=== PATIENT | female | born 1975 | race Caucasian/White ===

== ENCOUNTER 2016-10-29 12:58 | Outpatient (CLI) | payer OTHER ==
[~2016-10-29 12:58] MED LIST: ACETAMINOPHEN500 MG PO; ACYCLOVIR400 MG PO; ALPRAZOLAM1 MG PO; IBUPROFEN200 M1 PO; MORPHINE SULFAT15 M2 PO; NEURONTIN300 MG PO; OMEPRAZOLE20 M1 PO; OXYCODONE HCL5 MG PO; PERCOCET1 TA1 PO; PREDNISONE10 MG PO; PRENATAL1 TAB PO; PROAIR HFA IN; REGLAN10 MG PO; TIZANIDINE HCL4 MG PO; WOMENS DAILY FORMULA PO
--- NOTE | 2016-10-29 14:29 | DIAGNOSTIC IMAGING REPORT ---
PROCEDURE: MR LUMBAR SPINE W/O CONTRAST INDICATION: Lumbar pain TECHNIQUE: Noncontrast T1, T2, and STIR sagittal images. T1 and T2 axial images. COMPARISON: Lumbar spine MRI 12/26/2014 FINDINGS: Normal alignment without fracture. Schmorl's nodes from L1 to L5. Mild L3-4, severe L4-5 and moderate L5-S1 disc space narrowing with mild to moderate spur formation. Fatty endplate degenerative changes at L4-5. Normal conus. L1-2: Normal L2-3: Normal L3-4: Mild disc space narrowing and desiccation. Small disc protrusion but no spinal or foraminal stenosis. L4-5: Severe disc space narrowing with a mild broad-based disc protrusion/spur complex and mild facet arthropathy. There is resulting mild bilateral foraminal stenosis. There is no spinal stenosis. L5-S1: Moderate narrowing of the disc with desiccation. Moderate broad-based disc protrusion/spur complex and mild facet arthropathy resulting in moderate narrowing of the lateral recesses bilaterally and moderate left foraminal stenosis. No spinal stenosis. IMPRESSION: 1. Moderate degenerative changes of the lumbar spine multilevel disc protrusion and spur formation 2. Mild bilateral L4-5 foraminal stenosis 3. Moderate narrowing of the L5-S1 lateral recesses bilaterally and moderate left foraminal stenosis
== END 2016-10-29 23:00 ==
LOC: MRI SRH 12:58
DX: M51.36 Other intervertebral disc degeneration, lumbar region (principal); M51.26 Other intervertebral disc displacement, lumbar region; M48.06 Spinal stenosis, lumbar region; M48.07 Spinal stenosis, lumbosacral region

== ENCOUNTER 2016-12-26 12:21 | Outpatient (CLI) | payer OTHER ==
--- NOTE | 2016-12-26 14:22 | DIAGNOSTIC IMAGING REPORT ---
PROCEDURE: MR LUMBAR SPINE W/O CONTRAST INDICATION: BILATERAL SCIATICA TECHNIQUE: Noncontrast T1, T2, and STIR sagittal images. T1 and T2 axial images. COMPARISON: Lumbar spine MRI 10/29/2016 and 12/26/2014 FINDINGS: Normal alignment without fracture. Schmorl's nodes from L1 to L5. Mild L3-4, severe L4-5 and moderate L5-S1 disc space narrowing with mild to moderate spur formation. Fatty endplate degenerative changes at L4-5. Normal conus. L1-2: Normal L2-3: Normal L3-4: Mild disc space narrowing and desiccation. Small disc protrusion but no spinal or foraminal stenosis. L4-5: Severe disc space narrowing with a mild broad-based disc protrusion/spur complex and mild facet arthropathy. There is resulting mild bilateral foraminal stenosis. There is no spinal stenosis. L5-S1: Moderate narrowing of the disc with desiccation. Moderate broad-based disc protrusion and mild facet arthropathy resulting in moderate narrowing of the lateral recesses bilaterally and moderate left foraminal stenosis. No spinal stenosis. IMPRESSION: 1. Moderate degenerative changes of the lumbar spine multilevel disc protrusion and spur formation 2. No change from the MRIs dated the 10/29/2016 and 12/26/2014
== END 2016-12-26 23:00 | disposition home or self-care (01) ==
LOC: MRI SRH 12:21
DX: M47.816 Spondylosis without myelopathy or radiculopathy, lumbar region (principal); M51.26 Other intervertebral disc displacement, lumbar region